=== PATIENT | female | born 1990 | race Caucasian/White ===

== ENCOUNTER 2017-04-15 15:28 | Emergency (ER) | payer OTHER ==
[~2017-04-15] VITALS: Ht 162.6 cm; Wt 88.0 kg
[2017-04-15 15:31] VITALS: Ht 162.6 cm; Wt 88.0 kg
[2017-04-15] MEDS ORDERED: SOD CHLORIDE 0.9% 1,000 ML IV STA (15:52)
[2017-04-15] MEDS ORDERED: FAMOTIDINE 20 MG INJ IV STA (15:52)
[2017-04-15] MEDS ORDERED: KETOROLAC 30 MG INJ IV STA (15:52)
[2017-04-15] MEDS ORDERED: morphine 4 MG/ML VIAL IV STA ×2 (15:52→17:01)
[2017-04-15 16:13] LABS: BASOPHILS % 0.2 % (0.0-2.0); EOSINOPHILS # 0.1 10^3/ul (0.0-0.5); EOSINOPHILS % 0.5 % (0.0-7.0); HEMATOCRIT 47.1 % (37.0-47.0); HEMOGLOBIN 16.4 g/dl (12.0-16.0); LYMPHOCYTES # 2.5 10^3/ul (0.8-2.9); LYMPHOCYTES % 14.7 % (15.0-51.0); MEAN CORPUSCULAR HEMOGLOBIN 30.8 pg (29.0-33.0); MEAN CORPUSCULAR HGB CONC 34.8 g/dl (32.0-37.0); MEAN CORPUSCULAR VOLUME 88.4 fl (82.0-101.0); MEAN PLATELET VOLUME 10.1 fl (7.4-10.4); MONOCYTE # 1.1 10^3/ul (0.3-0.9); MONOCYTES % 6.5 % (0.0-11.0); NEUTROPHIL # 13.3 10^3/ul (1.6-7.5); NEUTROPHILS % 77.6 % (39.0-77.0); PLATELET COUNT 262 10^3/UL (140-415); RED BLOOD COUNT 5.33 10^6/ul (4.20-5.40); RED CELL DISTRIBUTION WIDTH 11.9 % (11.5-14.5); WHITE BLOOD COUNT 17.2 10^3/ul (4.8-10.8)
[2017-04-15 16:14] LABS: ADD SCAN DIFF NO
[2017-04-15 16:18] LABS: ADD UMIC YES; UR ASCORBIC ACID NEGATIVE (NEGATIVE); UR BACTERIA FEW /HPF (NONE SEEN); UR BILIRUBIN (Dip) NEGATIVE (NEGATIVE); UR BLOOD (Dip) NEGATIVE (NEGATIVE); UR CLARITY CLOUDY (CLEAR); UR COLOR YELLOW (YELLOW); UR GLUCOSE (Dip) 3+ mg/dL (NEGATIVE); UR KETONES (Dip) TRACE mg/dL (NEGATIVE); UR LEUKOCYTE ESTERASE (Dip) NEGATIVE Leu/ul (NEGATIVE); UR MUCUS MANY /HPF (NONE SEEN); UR NITRITE (Dip) NEGATIVE (NEGATIVE); UR RBC 7 /HPF (0-5); UR SPECIFIC GRAVITY (Dip) 1.037 (1.003-1.030); UR SQUAMOUS EPITHELIAL CELL FEW /HPF (FEW); UR TOTAL PROTEIN (Dip) 3+ mg/dl (NEGATIVE); UR UROBILINOGEN (Dip) NEGATIVE (NEGATIVE)
[2017-04-15 16:41] LABS: ALBUMIN 5.4 g/dl (3.3-4.9); ALBUMIN/GLOBULIN RATIO 1.54; BILIRUBIN,INDIRECT 0.3 mg/dl (0-1.1); BILIRUBIN,TOTAL 0.3 mg/dl (0.2-1.3); CALCIUM 10.2 mg/dl (8.4-10.2); CREATININE 0.6 mg/dl (0.44-1.00); POTASSIUM 3.6 mmol/L (3.5-5.1); TOTAL PROTEIN 8.9 g/dl (6.1-8.1)
--- NOTE | 2017-04-15 16:52 | RADRPT ---
PROCEDURE: Right Upper Quadrant Ultrasound. CLINICAL INDICATION: Abdominal Pain TECHNIQUE: Multiple real-time images were acquired of the patient's right upper quadrant abdomen a nd retroperitoneum utilizing a high resolution transducer. COMPARISON: None FINDINGS: The liver measures 17.1 cm, and demonstrates moderately increased echogenicity. The main portal vein is patent with proper directional flow. There is no intrahepatic biliary ductal dilatation. The ext rahepatic common bile duct measures 4 mm. The gallbladder is without stones, wall thickening, or pericholecystic fluid. The pancreas is not visualized due to overlying bowel gas. The right kidney measures 10.1 x 4.8 x 5.7 cm and demonstrates normal echotexture. There is no right renal calculus or hydronephrosis. The visualized abdominal aorta and IVC are grossly unremarkable. IMPRESSION: Mild hepatomegaly with moderate fatty infiltration. No cholelithiasis or acute cholecystitis. Normal CBD. RPTAT: EE Physician Jared Date Time Electronically viewed and signed by Physician Jared on 04/15/2017 16:52 /
[2017-04-15] MEDS ORDERED: DICY10CA60 PO (17:00)
[2017-04-15] MEDS ORDERED: ONDA-43 PO (17:05)
[2017-04-15] MEDS ORDERED: CIPR500T4 PO (17:05)
--- NOTE | 2017-04-15 17:17 | ERD ---
ER Documentation Chief Complaint Date/Time DATE: 04/15/17 TIME: 17:11 Chief Complaint abdoinal pain; vomitting and dizziness HPI This is a 26-year-old female that presents to the ER with abdominal pain that started an hour ago. Abdominal pain is located all over her abdomen and is sharp and intermittent. She also began to have episodes of nonbilious nonbloody vomiting about 3 hours ago. Patient denies any fevers or chills. She does admit to some urinary frequency or dysuria. She denies any hematuria. Patient denies any recent travel or eating any new foods. Patient has a past medical history of type 2 diabetes and hypertension. ROS 12 point review of systems was done, all negative except per HPI. Medications Home Meds Active Scripts Ondansetron Hcl* (Zofran*) 4 Mg Tab, 4 MG PO Q4H Y for NAUSEA AND OR VOMITING, # 30 TAB Prov:NADEGE CHAUDHRY 04/15/17 Ciprofloxacin Hcl* (Ciprofloxacin Hcl*) 500 Mg Tablet, 500 MG PO BID for 10 Days , TAB Prov:NADEGE CHAUDHRY 04/15/17 Allergies Allergies: Coded Allergies: No Known Allergy (Unverified , 04/15/17) PMhx/Soc History of Surgery: No Anesthesia Reaction: No Hx Neurological Disorder: No Hx Respiratory Disorders: No Hx Cardiac Disorders: Yes (HTN) Hx Psychiatric Problems: No Hx Miscellaneous Medical Probl: Yes (DM) Hx Alcohol Use: No Hx Substance Use: No Hx Tobacco Use: No Physical Exam Vitals Physical Exam GENERAL: The patient is well developed and appropriate for usual state of health , in no apparent distress. HEENT: Atraumatic. . CHEST: Clear to auscultation bilaterally. There are no rales, wheezes or rhonchi. HEART: Regular rate and rhythm. No murmurs, clicks, rubs or gallops. ABDOMEN: Soft nondistended, patient has some tenderness over the epigastric area. Good bowel sounds. No rebound or guarding. No gross peritonitis. No gross organomegaly or masses. No Aclderón sign or McBurney point tenderness. BACK: Mild CVA tenderness NEURO: Alert and oriented. Results 24 hrs Laboratory Tests Test 04/15/17 16:05 White Blood Count 17.210^3/ul Red Blood Count 5.3310^6/ul Hemoglobin 16.4g/dl Hematocrit 47.1% Mean Corpuscular Volume 88.4fl Mean Corpuscular Hemoglobin 30.8pg Mean Corpuscular Hemoglobin Concent 34.8g/dl Red Cell Distribution Width 11.9% Platelet Count 61563^3/UL Mean Platelet Volume 10.1fl Neutrophils % 77.6% Lymphocytes % 14.7% Monocytes % 6.5% Eosinophils % 0.5% Basophils % 0.2% Nucleated Red Blood Cells % 0.0/100WBC Neutrophils # 13.310^3/ul Lymphocytes # 2.510^3/ul Monocytes # 1.110^3/ul Eosinophils # 0.110^3/ul Basophils # 0.010^3/ul Nucleated Red Blood Cells # 0.010^3/ul Urine Color YELLOW Urine Clarity CLOUDY Urine pH 5.0 Urine Specific [place] 1.037 Urine Ketones TRACEmg/dL Urine Nitrite NEGATIVEmg/dL Urine Bilirubin NEGATIVEmg/dL Urine Urobilinogen NEGATIVEmg/dL Urine Leukocyte Esterase NEGATIVELeu/ul Urine Microscopic RBC 7/HPF Urine Microscopic WBC 27/HPF Urine Squamous Epithelial Cells FEW/HPF Urine Bacteria FEW/HPF Urine Mucus MANY/HPF Urine Hemoglobin NEGATIVEmg/dL Urine Glucose 3+mg/dL Urine Total Protein 3+mg/dl Sodium Level 139mmol/L Potassium Level 3.6mmol/L Chloride Level 98mmol/L Carbon Dioxide Level 28mmol/L Anion Gap 17 Blood Urea Nitrogen 11mg/dl Creatinine 0.60mg/dl Glucose Level 216mg/dl Calcium Level 10.2mg/dl Total Bilirubin 0.3mg/dl Direct Bilirubin 0.00mg/dl Indirect Bilirubin 0.3mg/dl Aspartate Amino Transf (AST/SGOT) 24IU/L Alanine Aminotransferase (ALT/SGPT) 50IU/L Alkaline Phosphatase 114IU/L Total Protein 8.9g/dl Albumin 5.4g/dl Globulin 3.50g/dl Albumin/Globulin Ratio 1.54 Lipase 130U/L Current Medications Medications (Trade) Dose Ordered Sig/[place] Route PRN Reason Start Time Stop Time Status Last Admin Dose Admin Sodium Chloride (NS) 1,000 ml @ 1,000 mls/hr Q1H STAT IV 04/15/17 15:52 04/15/17 16:51 DC 04/15/17 16:15 Morphine Sulfate (morphine) 4 mg ONCE STAT IV 04/15/17 15:52 04/15/17 15:54 DC 04/15/17 16:16 Famotidine (Pepcid Iv) 20 mg ONCE STAT IV 04/15/17 15:52 04/15/17 15:54 DC 04/15/17 16:15 Ketorolac Tromethamine (Toradol) 30 mg ONCE STAT IV 04/15/17 15:52 04/15/17 15:54 DC 04/15/17 16:16 Morphine Sulfate 4 mg 4 mg ONCE STAT IV 04/15/17 17:01 04/15/17 17:02 DC 04/15/17 17:04 Ceftriaxone Sodium (Rocephin) 50 ml @ 100 mls/hr ONCE ONCE IVPB 04/15/17 17:30 04/15/17 17:38 DC 04/15/17 17:08 Procedures/MDM Differential Diagnosis: GERD, gastritis, peptic ulcer disease, pancreatitis, cholecystitis, choledocholithiasis, biliary colic, cholangitis, [id number] , ACS/[place], Pnuemonia , UTI, pyelonephritis. This is a 26-year-old female presents to the ER with abdominal pain that started an hour ago. On physical examination patient did have some tenderness to palpation over the epigastric area and therefore an ultrasound was obtained of the gallbladder however there was no evidence of gallstones. Patient did admit to some urinary frequency and dysuria and had a mild CVA tenderness, she does have an elevation in leukocytes in her blood and white blood cells were found in her urine, with her past medical history of diabetes patient is a higher risk of infection. Patient will be treated for possible pyelonephritis. She was given a dose of Rocephin here in the ER without any complications. Patient's vomiting was also controlled. At this time suspicion for acute abdomen such as appendicitis or diverticulitis or intra-abdominal abscess is low as patient is afebrile. I did not feel a CT abdomen was needed as her abdominal examination was benign except for some minor tenderness over the epigastric area. There is no right lower quadrant tenderness or left lower quadrant tenderness. Patient's blood sugar was elevated however suspicion for DKA or hyperosmolar coma is low there is no evidence of acidosis on blood work. Patient needs to follow-up with her primary care doctor within 1-2 days or return to ER sooner if symptoms worsen. My medical decision making was shared with the patient she understands and agrees with plan. Departure Diagnosis: Primary Impression: Pyelonephritis Condition: Stable Patient Instructions: Pyelonephritis Additional Instructions: Call your primary care doctor TOMORROW for an appointment during the next 1-2 days.See the doctor sooner or return here if your condition worsens before your appointment time. NADEGE CHAUDHRY Apr 15, 2017 17:17 Pyelonephritis Condition: Stable Patient Instructions: Pyelonephritis Additional Instructions: Call your primary care doctor TOMORROW for an appointment during the next 1-2 days.See the doctor sooner or return here if your condition worsens before your appointment time. NADEGE CHAUDHRY Apr 15, 2017 17:17
[2017-04-15] MEDS ORDERED: CEFTRIAXONE 1 GM/50 ML (PMX) 50 ML IVPB ONE (17:30)
[2017-04-15 17:35] VITALS: BP 148/88; PULSE 104; RESP 18; TEMP 99.9
== END 2017-04-15 17:35 | disposition home or self-care (01) ==
LOC: FTE 15:28
DX: N12 Tubulo-interstitial nephritis, not specified as acute or chronic (principal); E11.9 Type 2 diabetes mellitus without complications; I10 Essential (primary) hypertension; R11.10 Vomiting, unspecified
CPT/HCPCS: 76705; 80053; 81001; 83690; 85025; 87086; J0696; J1885; J2270; J7030; Z7610; 36415; 96365; 96375; 96376